=== PATIENT | female | born 1955 | race Caucasian/White ===

== ENCOUNTER 2024-12-06 11:25 | Outpatient (CLI) | payer MEDICARE | END 2024-12-06 11:26 | disposition home or self-care (01) | LOC: BICMAMMO 11:25 | PROVIDERS: ATTEND Family Medicine | DX: Z12.31 Encounter for screening mammogram for malignant neoplasm of breast (principal); Z80.3 Family history of malignant neoplasm of breast | CPT/HCPCS: 77063; 77067 ==

== ENCOUNTER 2024-12-06 12:25 | Outpatient (CLI) | payer MEDICARE ==
[~2024-12-06 12:25] MED LIST: Iopamidol 370 76% 100 ML VIAL ONE
[2024-12-06 12:39] LABS: Estimated GFR - POC 61.0
== END 2024-12-06 12:26 | disposition home or self-care (01) ==
LOC: CT 12:25
PROVIDERS: ATTEND Family Medicine
DX: R91.1 Solitary pulmonary nodule (principal)
CPT/HCPCS: 36415; 71260; 82565; Q9967